=== PATIENT | male | born 1985 | race American Indian/Alaskan Native ===

== ENCOUNTER 2018-06-09 18:02 | Emergency (ER) | payer OTHER, BC ==
[2018-06-09 18:07] VITALS: PULSE 87; RESP 17; TEMP 98.8; O2SAT 97
--- NOTE | 2018-06-09 18:20 | ED PDOC ---
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 He reports localized pain to the area, rating it a 7/10, worse with movement, but denies taking any medications before arriving. Otherwise, (-) prior shoulder injury, (-) head injury, (-) loss of consciousness , (-) other complaints. Right hand dominant. PMD: Dr. Chowdhury Past Medical History Reviewed: Historical Data, Nursing Documentation, Vital Signs Vital Signs: Last Vital Signs Temp 98.8 F 06/09/18 18:03 Pulse 87 06/09/18 18:03 Resp 17 06/09/18 18:03 BP Pulse Ox 97 06/09/18 18:03 - Medical History PMH: No Chronic Diseases - Surgical History Surgical History: No Surg Hx - Family History Family History: States: Unknown Family Hx - Social History Current smoker - smoking cessation education provided: No Alcohol: None Drugs: Denies - Home Medications Home Medications: Ambulatory Orders Medication Instructions Recorded Ibuprofen [Motrin Tab] 600 mg PO Q6 PRN #28 tab 06/09/18 - Allergies Allergies/Adverse Reactions: Allergies Allergy/AdvReac Type Severity Reaction Status Date / Time No Known Allergies Allergy Verified 06/09/18 18:06 Review of Systems ROS Statement: Except As Marked, All Systems Reviewed And Found Negative Constitutional: Negative for: Other (head injury) Musculoskeletal: Positive for: Shoulder Pain (right, worse with movement) Neurological: Negative for: Other (loss of consciousness) Physical Exam - Reviewed Nursing Documentation Reviewed: Yes Vital Signs Reviewed: Yes - Physical Exam Comments: GENERAL APPEARANCE: Patient is awake, alert, oriented x 3, in no acute distress. SKIN: Warm, dry; (-) cyanosis. RIGHT UPPER EXTREMITY: (+) tenderness to ac joint, distal clavical, and trapezius. (+) decreased ROM in shoulder secondary to pain. (-) deformity, (-) tenting of skin, (-) ecchymosis, (-) effusion, (-) edema, (-) erythema. HEART AND CARDIOVASCULAR: (-) irregularity; (-) murmur, (-) gallop. CHEST AND RESPIRATORY: (-) rales, (-) rhonchi, (-) wheezes; breath sounds equal. NEURO AND PSYCH: Mental status as above. - ECG O2 Sat by Pulse Oximetry: 97 (RA) Pulse Ox Interpretation: Normal Medical Decision Making Medical Decision Making: Time: 18:09 Initial Impression: acute shoulder injury, consider a/c joint injury Initial Plan: --Right shoulder XR --Motrin 600 mg PO --Re-evaluation 1849 RT SHOULDER XR FINDINGS: BONES: No acute fracture. JOINTS: Unremarkable. SOFT TISSUES: Normal. OTHER FINDINGS: None. IMPRESSION: No demonstrated fracture or dislocation. 1899 On re-evaluation, patient reports improvement of symptoms. On exam, patient remains AAOx3, in no acute distress. On exam, neck is supple, lungs CTA, cardiac RRR, neuro exam shows no focal findings. VSS, stable for discharge. Diagnostic results d/w the patient in great detail. Dx of acute shoulder pain/ sprain/contusion d/w the patient. Based on history, exam and diagnostic results plan will be for discharge and outpatient ortho follow up. Advised to follow up with primary care physician/ortho in 1-2 days without fail. Advised to take medication as prescribed. Return to the emergency room at any time for any new or worsening symptoms. Patient states he fully agrees with and understands discharge instructions. States that he agrees with the plan and disposition. Verbalized and repeated discharge instructions and plan. I have given the patient opportunity to ask any additional questions. Scribe Attestation: Documented by Violet Davidson, acting as a scribe for Brandy Tenorio PA-C. Provider Scribe Attestation: All medical record entries made by the Scribe were at my direction and personally dictated by me. I have reviewed the chart and agree that the record accurately reflects my personal performance of the history, physical exam, medical decision making, and the department course for this patient. I have also personally directed, reviewed, and agree with the discharge instructions and disposition. Disposition - Clinical Impression Clinical Impression: Shoulder pain, right, Sprain of shoulder, right, Contusion - Patient ED Disposition Is Patient to be Admitted: No Counseled Patient/Family Regarding: Studies Performed, Diagnosis, Need For Followup, Rx Given - Disposition Referrals: Chris Arora III, MD [Staff Provider] - Disposition: Routine/Home Disposition Time: 19:01 Condition: STABLE Additional Instructions: FOLLOW UP WITH PMD IN 1-2 DAYS WITHOUT FAIL. RETURN TO ED WITH ANY NEW OR WORSENING SYMPTOMS. Prescriptions: Ibuprofen [Motrin Tab] 600 mg PO Q6 PRN #28 tab PRN Reason: Pain, Moderate (4-7) Instructions: Shoulder Sprain, Contusion (DC), Shoulder Pain (DC) Forms: [facility] (Icelandic) Print Language: PERUVIAN - POA Present On Arrival: Falls Or Trauma
--- NOTE | 2018-06-09 18:56 | RAD ---
Date of service: 06/09/2018 PROCEDURE: Radiographs of the Left Shoulder HISTORY: s/p fall COMPARISON: Right shoulder radiographs dated 01/22/2011. FINDINGS: BONES: No acute fracture. JOINTS: Unremarkable. SOFT TISSUES: Normal. OTHER FINDINGS: None. IMPRESSION: No demonstrated fracture or dislocation.
== END 2018-06-09 19:20 | disposition home or self-care (01) ==
LOC: H.ER 18:02
DX: S43.401A Unspecified sprain of right shoulder joint, initial encounter (principal); S40.011A Contusion of right shoulder, initial encounter; W22.01XA Walked into wall, initial encounter; Y92.815 Train as the place of occurrence of the external cause; Y99.0 Civilian activity done for income or pay; M25.511 Pain in right shoulder